=== PATIENT | female | born 1985 | race Caucasian/White ===

== ENCOUNTER 2017-06-17 10:34 | Emergency (ER) | payer OTHER ==
[2017-06-17 10:38] VITALS: BP 130/89
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
[2017-06-17] MEDS ORDERED: CYCLOBENZAPRINE HCL 10 MG TABLET PO ONE (11:47)
[2017-06-17] MEDS ORDERED: OXYCODONE-ACETAMINOPHEN 5-325 MG TABLET PO ONE (11:47)
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
== END 2017-06-17 12:11 | disposition home or self-care (01) ==
LOC: ER 10:34
DX: M54.2 Cervicalgia (principal); M54.6 Pain in thoracic spine; M25.512 Pain in left shoulder; M62.838 Other muscle spasm; V49.50XA Passenger injured in collision with unspecified motor vehicles in traffic accident, initial encounter; Z88.0 Allergy status to penicillin; Z87.892 Personal history of anaphylaxis; Z88.5 Allergy status to narcotic agent; Z88.6 Allergy status to analgesic agent
CPT/HCPCS: 72050; 99284

== ENCOUNTER 2018-07-18 08:29 | Emergency (ER) | payer OTHER ==
[2018-07-18 08:54] LABS: APPEARANCE,URINE TURBID; BILIRUBIN,URINE NEGATIVE (NEGATIVE); COLOR,URINE YELLOW; GLUCOSE, URINE NEGATIVE (NEGATIVE); KETONES,URINE NEGATIVE (NEGATIVE); LEUKOCYTE ESTERASE,URINE LARGE (NEGATIVE); NITRITE,URINE NEGATIVE (NEGATIVE); PROTEIN,URINE NEGATIVE (NEGATIVE); URINE SPECIFIC GRAVITY 1.014; UROBILINOGEN,URINE NEGATIVE mg/dL (<2.0)
[2018-07-18] MEDS ORDERED: NITROFURANTOIN MONOHYD/M-CRYST 100 MG CAPSULE PO ONE (09:46)
--- NOTE | 2018-07-18 09:48 | ER Document Report ---
ED General - General Chief Complaint: Urinary Problem Stated Complaint: BURNING WITH URINATION Time Seen by Provider: 07/18/18 09:31 TRAVEL OUTSIDE OF THE [place] IN LAST 30 DAYS: No - HPI Notes: Patient is a 32-year-old female that presents to the emergency department for chief complaint of dysuria. Patient complains of dysuria for the past 3-4 days. She states occasionally it appears to be bloody. She denies any nausea, vomiting, abdominal pain, diarrhea , fevers or chills. She does have a history of urinary tract infections in the past. She denies any concern for STD. She has not taken any medication at home for her symptoms. Past Medical History: Anxiety, depression Past Surgical History: Hip arthroscopy, tubal ligation Social History: Daily tobacco, denies drugs and alcohol Family History: Reviewed and noncontributory for presenting illness Allergies: Reviewed, see documented allergy list. REVIEW OF SYSTEMS: CONSTITUTIONAL : No fever No chills No diaphoresis No recent illness EENT: No vision changes No congestion No sore throat CARDIOVASCULAR: No chest pain No palpitations RESPIRATORY: No shortness of breath No cough No difficulty breathing GASTROINTESTINAL: No abdominal pain No nausea No vomiting No diarrhea GENITOURINARY: dysuria No hematuria No difficulty urinating MUSCULOSKELETAL: No back pain No leg pain No arm pain SKIN: No rashes No lesions LYMPHATIC: No swollen, enlarged glands. NEUROLOGICAL: No lightheadedness No headache No weakness No paresthesias PSYCHIATRIC: No anxiety No depression PHYSICAL EXAMINATION: Vital signs reviewed, nursing noted reviewed. GENERAL: Well-appearing, well-nourished and in no acute distress. HEAD: Atraumatic, normocephalic. EYES: Eyes appear normal, extraocular movements intact, sclera anicteric, conjunctiva are normal. ENT: nares patent, oropharynx clear without exudates. Moist mucous membranes. NECK: Normal range of motion, supple without lymphadenopathy LUNGS: Breath sounds clear to auscultation bilaterally and equal. No wheezes rales or rhonchi. HEART: Regular rate and rhythm without murmurs ABDOMEN: Soft, nontender, normoactive bowel sounds. No rebound, guarding, or rigidity. No masses appreciated. EXTREMITIES: Nontender, good range of motion, no pitting or edema. NEUROLOGICAL: No focal neurological deficits. Moves all extremities spontaneously Motor and sensory grossly intact on exam. PSYCH: Normal mood, normal affect. SKIN: Warm, Dry, normal turgor, no rashes or lesions noted on exposed skin - Related Data Allergies/Adverse Reactions: ibuprofen [From Motrin] Allergy (Intermediate, Verified 07/18/18 08:33) Hives Penicillins Allergy (Verified 07/18/18 08:33) tramadol [Tramadol] Allergy (Verified 07/18/18 08:33) Past Medical History - Social History Smoking Status: Current Every Day Smoker Frequency of alcohol use: None Drug Abuse: None Family History: Arthritis, CAD, CVA, DM, Hyperlipidemia, Hypertension, Malignancy, Other Patient has suicidal ideation: No Patient has homicidal ideation: No Pulmonary Medical History: Reports: Hx Bronchitis Denies: Hx Asthma Renal/ Medical History: Reports: Hx Ovarian Cysts. Denies: Hx Peritoneal Dialysis Musculoskeletal Medical History: Denies Hx Arthritis, Reports Hx Musculoskeletal Deformity - chronic hip pain, rotated, Reports Hx Musculoskeletal Trauma Psychiatric Medical History: Reports: Hx Anxiety, Hx Depression Traumatic Medical History: Reports: Hx Fractures - hip Past Surgical History: Reports: Hx Gynecologic Surgery - ovarian cyst removal, Hx Oral Surgery, Hx Orthopedic Surgery - hip arthroscopy, Hx Tubal Ligation - Immunizations Immunizations up to date: Yes Hx Diphtheria, Pertussis, Tetanus Vaccination: Yes - received in the office Physical Exam - Vital signs Vitals: Temp Pulse Resp BP Pulse Ox 97.5 F 84 14 108/66 100 07/18/18 08:43 07/18/18 08:43 07/18/18 08:43 07/18/18 08:43 07/18/18 08:43 Course - Re-evaluation Re-evalutation: 07/18/18 09:47 Vitals reviewed. Nursing notes reviewed. Patient hemodynamically stable. She will be started on Macrobid for urinary tract infection. She was referred to family medicine for follow-up. Discharged in stable condition. - Vital Signs Vital signs: Temp Pulse Resp BP Pulse Ox 97.5 F 84 14 108/66 100 07/18/18 08:43 07/18/18 08:43 07/18/18 08:43 07/18/18 08:43 07/18/18 08:43 - Laboratory Laboratory results interpreted by me: 07/18/18 08:39 Urine Blood SMALL H Ur Leukocyte Esterase LARGE H Discharge - Discharge Clinical Impression: UTI (urinary tract infection) Qualifiers: Urinary tract infection type: site unspecified Hematuria presence: with hematuria Qualified Code(s): N39.0 - Urinary tract infection, site not specified ; R31.9 - Hematuria, unspecified; R31.9 - Hematuria, unspecified Condition: Stable Disposition: HOME, SELF-CARE Instructions: Urinary Tract Infection ([facility]), Nitrofurantoin ([facility]), Family Physicians / Practices Additional Instructions: Please return to the emergency department if you have any worsening, or concern of your symptoms. Please return to the emergency department if you develop chest pain, difficulty breathing, severe abdominal pain, or ongoing vomiting. Please follow-up with your primary care physician in 2-3 days and any other recommended physicians. If prescribed, take all medications as directed. If you have any questions or concerns do not hesitate to return the emergency department for evaluation. [] Prescriptions: Nitrofurantoin Monohyd/M-Cryst [Macrobid 100 mg Capsule] 1 tab PO BID #10 capsule
[2018-07-18 10:05] VITALS: BP 112/87
== END 2018-07-18 10:05 | disposition home or self-care (01) ==
LOC: ER 08:29
DX: N39.0 Urinary tract infection, site not specified (principal); R31.9 Hematuria, unspecified; F17.200 Nicotine dependence, unspecified, uncomplicated; Z98.51 Tubal ligation status; Z88.0 Allergy status to penicillin; Z88.6 Allergy status to analgesic agent
CPT/HCPCS: 99283; 81025; 81001; J8499

== ENCOUNTER 2018-09-23 09:42 | Emergency (ER) | payer OTHER ==
[2018-09-23] MEDS ORDERED: OXYCODONE-ACETAMINOPHEN 5-325 MG TABLET PO ONE (10:06)
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
[2018-09-23 11:20] LABS: APPEARANCE,URINE SLIGHTLY-CLOUDY; BILIRUBIN,URINE NEGATIVE (NEGATIVE); COLOR,URINE YELLOW; GLUCOSE, URINE NEGATIVE (NEGATIVE); KETONES,URINE NEGATIVE (NEGATIVE); LEUKOCYTE ESTERASE,URINE NEGATIVE (NEGATIVE); NITRITE,URINE NEGATIVE (NEGATIVE); PROTEIN,URINE NEGATIVE (NEGATIVE); URINE SPECIFIC GRAVITY 1.013; UROBILINOGEN,URINE NEGATIVE mg/dL (<2.0)
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
[2018-09-23] MEDS ORDERED: HYDROCODONE/ACETAMINOPHEN 5-325 MG (6 TAB/ER DISP) PO PRN (12:25)
[2018-09-23 13:32] VITALS: BP 135/91
== END 2018-09-23 13:31 | disposition home or self-care (01) ==
LOC: ER 09:42
DX: S06.9X9A Unspecified intracranial injury with loss of consciousness of unspecified duration, initial encounter (principal); S52.042A Displaced fracture of coronoid process of left ulna, initial encounter for closed fracture; S16.1XXA Strain of muscle, fascia and tendon at neck level, initial encounter; M25.551 Pain in right hip; M54.5 Low back pain; V48.5XXA Car driver injured in noncollision transport accident in traffic accident, initial encounter; Y93.89 Activity, other specified; J32.0 Chronic maxillary sinusitis; F17.210 Nicotine dependence, cigarettes, uncomplicated; Z71.6 Tobacco abuse counseling; Z88.6 Allergy status to analgesic agent; Z88.8 Allergy status to other drugs, medicaments and biological substances; Z88.0 Allergy status to penicillin; Z88.5 Allergy status to narcotic agent
CPT/HCPCS: 70450; 71111; 72110; 72125; 81001; 81025; 99284; 99406

== ENCOUNTER 2018-10-05 14:26 | Emergency (ER) | payer OTHER ==
[2018-10-05] MEDS ORDERED: OXYCODONE-ACETAMINOPHEN 5-325 MG TABLET PO ONE (15:48)
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
[2018-10-05 16:06] VITALS: BP 120/80
== END 2018-10-05 16:04 | disposition home or self-care (01) ==
LOC: ER 14:26
DX: S52.042A Displaced fracture of coronoid process of left ulna, initial encounter for closed fracture (principal); M25.522 Pain in left elbow; X58.XXXA Exposure to other specified factors, initial encounter
CPT/HCPCS: 99283

== ENCOUNTER 2018-11-21 12:10 | Emergency (ER) | payer OTHER ==
[2018-11-21 12:22] VITALS: BP 126/83
[2018-11-21] MEDS ORDERED: CEFTRIAXONE INJ 1000 MG VIAL IM ONE (12:40)
[2018-11-21] MEDS ORDERED: LIDOCAINE 1% INJ-PF (10 MG/ML) 30 ML SDV INJ ONE (12:40)
[2018-11-21] MEDS ORDERED: HYDROCODONE/ACETAMINOPHEN 5-325 MG TABLET PO ONE (12:40)
--- NOTE | 2018-11-21 12:45 | ER Document Report ---
HPI - HPI Patient complains to provider of: Skin infection Time Seen by Provider: 11/21/18 12:25 Onset: Yesterday Onset/Duration: Gradual Quality of pain: Achy Pain Level: 5 Context: Patient complains of a possible insect bite to her right leg. Patient complains of redness and swelling that started yesterday. Patient denies any fever or history of MRSA. Patient states that area started to spontaneously drain at home purulent drainage. Associated Symptoms: Other - Drainage from skin to posterior aspect of right leg. denies: Fever Exacerbated by: Movement Relieved by: Denies Similar symptoms previously: No Recently seen / treated by doctor: No - ROS ROS below otherwise negative: Yes Systems Reviewed and Negative: Yes All other systems reviewed and negative - CONSTITUTIONAL Constitutional: DENIES: Fever, Chills - REPRODUCTIVE Reproductive: DENIES: : - MUSCULOSKELETAL Musculoskeletal: REPORTS: Extremity pain - DERM Skin Color: Erythema Past Medical History - General Information source: Patient - Social History Smoking Status: Current Every Day Smoker Smoking Education Provided: Yes Frequency of alcohol use: None Drug Abuse: None 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 Denies: Hx Peritoneal Dialysis Musculoskeletal Medical History: Denies Hx Arthritis, Reports Hx Musculoskeletal Deformity - chronic hip pain, rotated, Reports Hx Musculoskeletal Trauma Psychiatric Medical History: Reports: Hx Anxiety, Hx Depression Traumatic Medical History: Reports: Hx Fractures - hip Past Surgical History: Reports: Hx Gynecologic Surgery - ovarian cyst removal, Hx Oral Surgery, Hx Orthopedic Surgery - hip arthroscopy, Hx Tubal Ligation - Immunizations Immunizations up to date: Yes Hx Diphtheria, Pertussis, Tetanus Vaccination: Yes - received in the office Vertical Provider Document - CONSTITUTIONAL Agree With Documented VS: Yes Exam Limitations: No Limitations General Appearance: WD/WN, No Apparent Distress - INFECTION CONTROL TRAVEL OUTSIDE OF THE [place] IN LAST 30 DAYS: No - HEENT HEENT: Atraumatic, Normocephalic - NECK Neck: Normal Inspection, Supple - RESPIRATORY Respiratory: Breath Sounds Normal, No Respiratory Distress - CARDIOVASCULAR Cardiovascular: Regular Rate, Regular Rhythm Pulses: Normal: Dorsalis pedis - MUSCULOSKELETAL/EXTREMETIES Musculoskeletal/Extremeties: FRANKIE MEHTA Notes: Patient with full range of motion to right knee joint without guarding or significant tenderness - NEURO Level of Consciousness: Awake, Alert, Appropriate Motor/Sensory: No Motor Deficit - DERM Integumentary: Warm, Dry Adult Front & Back Diagram: 1 - Erythema surrounding central tender indurated skin lesion, concerning for developing abscess Course - Re-evaluation Re-evalutation: 11/21/18 12:42 Patient with developing abscess to the right posterior distal thigh, skin o verlying area erythematous concerning for cellulitis. No concern for septic arthritis at this time. - Vital Signs Vital signs: Temp Pulse Resp BP Pulse Ox 99.2 F 105 H 16 126/83 H 99 11/21/18 12:20 11/21/18 12:20 11/21/18 12:20 11/21/18 12:20 11/21/18 12:20 Procedures - Incision and Drainage Right Leg Type: Simple Incision Method: Incision made with needle Amount/type of drainage: Serous drainage only from wound Notes: 11/21/18 12:43 Attempted to de roof a papular lesion to right posterior leg, no purulent drainage removed Discharge - Discharge Clinical Impression: Abscess Cellulitis Qualifiers: Site of cellulitis: extremity Site of cellulitis of extremity: lower extremity Laterality: right Qualified Code(s): L03.115 - Cellulitis of right lower limb Condition: Stable Disposition: HOME, SELF-CARE Instructions: Abscess ([facility]), Cephalexin ([facility]), Post Incision and Drainage, Rocephin ([facility]), Trimethoprim-Sulfa ([facility]) Additional Instructions: Return immediately for any new or worsening symptoms Followup with your primary care provider, call tomorrow to make a followup appointment Apply warm compresses frequently to right leg Prescriptions: Cephalexin Monohydrate [Keflex 500 mg Capsule] 500 mg PO Q6H 7 Days capsule Sulfamethoxazole/Trimethoprim [Bactrim Ds Tablet] 1 each PO BID #20 tablet Forms: Smoking Cessation Education, Return to Work Referrals: [facility] [Provider Group] - Follow up as needed
== END 2018-11-21 13:30 | disposition home or self-care (01) ==
LOC: ER 12:10
PROC: 0H9KXZZ Drainage of Right Lower Leg Skin, External Approach (ICD-10-PCS; principal; 2018-11-21)
DX: L02.415 Cutaneous abscess of right lower limb (principal); L03.115 Cellulitis of right lower limb; W57.XXXA Bitten or stung by nonvenomous insect and other nonvenomous arthropods, initial encounter; F17.200 Nicotine dependence, unspecified, uncomplicated
CPT/HCPCS: 99282; 96372; 87070; 87205; 10060; J3490; J0696

== ENCOUNTER 2019-01-19 10:19 | Emergency (ER) | payer SELFPAY ==
[2019-01-19] MEDS ORDERED: ASPIRIN 81 MG TABLET, CHEWABLE PO ONE (10:51)
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
--- NOTE | 2019-01-19 11:14 | RADIOLOGY REPORT (SQ) ---
EXAM DESCRIPTION: CHEST SINGLE VIEW COMPLETED DATE/TIME: 01/19/2019 11:06 am REASON FOR STUDY: chest pain COMPARISON: 01/01/2016 EXAM PARAMETERS: NUMBER OF VIEWS: One view. TECHNIQUE: Single frontal radiographic view of the chest acquired. RADIATION DOSE: NA LIMITATIONS: None. FINDINGS: LUNGS AND PLEURA: No opacities, masses or pneumothorax. No pleural effusion. MEDIASTINUM AND HILAR STRUCTURES: No masses. Contour normal. HEART AND VASCULAR STRUCTURES: Heart normal in size. Normal vasculature. BONES: No acute findings. HARDWARE: None in the chest. OTHER: No other significant finding. IMPRESSION: NO ACUTE RADIOGRAPHIC FINDING IN THE CHEST. TECHNICAL DOCUMENTATION: JOB ID: [id number] [employer]- All Rights Reserved Reading location - IP/workstation name: [email or web address]
[2019-01-19 11:49] LABS: ABSOLUTE LYMPHOCYTES (AUTO) 1.1 10^3/uL (0.5-4.7); ABSOLUTE MONOCYTES (AUTO) 0.4 10^3/uL (0.1-1.4); BASOPHILS % (AUTO) 0.3 % (0-2); EOSINOPHILS % (AUTO) 0.4 % (0-6); HEMATOCRIT 40.7 % (36.0-47.0); LYMPHOCYTES % (AUTO) 16.8 % (13-45); MEAN CORPUSCULAR HEMOGLOBIN 30.9 pg (27.0-33.4); MEAN CORPUSCULAR HGB CONC 34.4 g/dL (32.0-36.0); MEAN CORPUSCULAR VOLUME 90 fl (80-97); MONOCYTES % (AUTO) 6.3 % (3-13); PLATELET COUNT 221 10^3/uL (150-450); RED BLOOD COUNT 4.53 10^6/uL (3.72-5.28); RED CELL DISTRIBUTION WIDTH 13.2 % (11.5-14.0); SEGMENTED NEUTROPHILS % (AUTO) 76.2 % (42-78); TOTAL CELLS COUNTED % (AUTO) 100 %; WHITE BLOOD COUNT 6.6 10^3/uL (4.0-10.5)
[2019-01-19 12:12] LABS: ALANINE AMINOTRANSFERASE 21 U/L (9-52); ALBUMIN 4.5 g/dL (3.5-5.0); ALKALINE PHOSPHATASE 69 U/L (38-126); ANION GAP 10 (5-19); ASPARTATE AMINO TRANSFERASE 19 U/L (14-36); BILIRUBIN,DIRECT 0.3 mg/dL (0.0-0.4); BILIRUBIN,TOTAL 0.4 mg/dL (0.2-1.3); BLOOD UREA NITROGEN 9 mg/dL (7-20); CARBON DIOXIDE 29 mmol/L (22-30); CHLORIDE 101 mmol/L (98-107); CREATINE KINASE 65 U/L (30-135); GLUCOSE 115 mg/dL (75-110); POTASSIUM 4.5 mmol/L (3.6-5.0); SODIUM 140.4 mmol/L (137-145)
[2019-01-19 12:22] LABS: CREATINE KINASE MB 0.41 ng/mL (<4.55)
[2019-01-19 12:34] LABS: TROPONIN I < 0.012 ng/mL
--- NOTE | 2019-01-19 12:51 | EKG REPORT ---
SEVERITY:- BORDERLINE ECG - SINUS RHYTHM SHORT MI INTERVAL, ACCELERATED AV CONDUCTION MINIMAL ST DEPRESSION, DIFFUSE LEADS : Confirmed by: Derek Rivera MD 19-Jan-2019 12:50:40
[2019-01-19] MEDS ORDERED: OXYCODONE-ACETAMINOPHEN 5-325 MG TABLET PO ONE (13:53)
[2019-01-19] MEDS ORDERED: LIDOCAINE 5% (700 MG) TRANSDERMAL ADH..PATCH TP ONE (13:54)
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
[2019-01-19 15:04] VITALS: BP 99/66
== END 2019-01-19 15:07 | disposition home or self-care (01) ==
LOC: ER 10:19
DX: J40 Bronchitis, not specified as acute or chronic (principal); R07.89 Other chest pain; M54.6 Pain in thoracic spine; R11.2 Nausea with vomiting, unspecified; F17.200 Nicotine dependence, unspecified, uncomplicated; Z88.6 Allergy status to analgesic agent; Z88.0 Allergy status to penicillin; Z98.51 Tubal ligation status
CPT/HCPCS: 36415; 71045; 80053; 82550; 82553; 84484; 85025; 93005; 93010; 99284

== ENCOUNTER 2019-01-31 10:16 | Emergency (ER) | payer OTHER ==
[2019-01-31] MEDS ORDERED: ACETAMINOPHEN 325 MG TABLET PO ONE (11:06)
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
--- NOTE | 2019-01-31 11:51 | RADIOLOGY REPORT (SQ) ---
EXAM DESCRIPTION: ELBOW LEFT OVER 2 VIEWS COMPLETED DATE/TIME: 01/31/2019 11:26 am REASON FOR STUDY: trauma COMPARISON: None. NUMBER OF VIEWS: Four views left elbow. LIMITATIONS: None. FINDINGS: There is no acute or significant bone, joint or soft tissue abnormality. OTHER: No other significant finding. IMPRESSION: NORMAL STUDY. TECHNICAL DOCUMENTATION: JOB ID: [id number] Reading location - IP/workstation name: [email or web address]
[2019-01-31] MEDS ORDERED: HYDROCODONE/ACETAMINOPHEN 5-325 MG TABLET PO ONE (12:20)
[2019-01-31 12:44] VITALS: BP 120/66
== END 2019-01-31 12:44 | disposition home or self-care (01) ==
LOC: ER 10:16
DX: M25.522 Pain in left elbow (principal); V49.9XXA Car occupant (driver) (passenger) injured in unspecified traffic accident, initial encounter; F17.200 Nicotine dependence, unspecified, uncomplicated
CPT/HCPCS: 99283

== ENCOUNTER 2019-06-25 08:58 | Emergency (ER) | payer SELFPAY ==
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
[2019-06-25] MEDS ORDERED: MORPHINE SULFATE 10 MG/ML INJ IV ONE (09:25)
[2019-06-25] MEDS ORDERED: DEXAMETHASONE SOD PHOSPHATE INJ 4 MG/1 ML VIAL IV ONE (09:25)
[2019-06-25] MEDS ORDERED: NORMAL SALINE 1000 ML 1,000 ML IV ONE (09:26)
[2019-06-25] MEDS ORDERED: CLINDAMYCIN 600 MG/D5W RTU 600 MG/50 ML RTUPB IV ONE (09:26)
[2019-06-25 09:56] LABS: ABSOLUTE EOSINOPHILS # (AUTO) 0.1 10^3/uL (0.0-0.6); ABSOLUTE LYMPHOCYTES (AUTO) 2.4 10^3/uL (0.5-4.7); ABSOLUTE MONOCYTES (AUTO) 0.6 10^3/uL (0.1-1.4); BASOPHILS % (AUTO) 0.5 % (0-2); EOSINOPHILS % (AUTO) 1.7 % (0-6); HEMATOCRIT 39.3 % (36.0-47.0); HEMOGLOBIN 13.4 g/dL (12.0-15.5); LYMPHOCYTES % (AUTO) 39.7 % (13-45); MEAN CORPUSCULAR HEMOGLOBIN 30.6 pg (27.0-33.4); MEAN CORPUSCULAR VOLUME 90 fl (80-97); MONOCYTES % (AUTO) 9.2 % (3-13); PLATELET COUNT 184 10^3/uL (150-450); RED BLOOD COUNT 4.37 10^6/uL (3.72-5.28); RED CELL DISTRIBUTION WIDTH 12.9 % (11.5-14.0); SEGMENTED NEUTROPHILS % (AUTO) 48.9 % (42-78); TOTAL CELLS COUNTED % (AUTO) 100 %; WHITE BLOOD COUNT 6.1 10^3/uL (4.0-10.5)
[2019-06-25 10:17] LABS: ANION GAP 9 (5-19); BLOOD UREA NITROGEN 12 mg/dL (7-20); CALCIUM 9.3 mg/dL (8.4-10.2); CARBON DIOXIDE 30 mmol/L (22-30); CHLORIDE 101 mmol/L (98-107); GLUCOSE 96 mg/dL (75-110); POTASSIUM 3.3 mmol/L (3.6-5.0)
--- NOTE | 2019-06-25 11:27 | RADIOLOGY REPORT (SQ) ---
EXAM DESCRIPTION: CT SOFT TISSUE NECK WITH COMPLETED DATE/TIME: 06/25/2019 10:58 am REASON FOR STUDY: facial swelling COMPARISON: None. TECHNIQUE: Post IV contrasted scanning from skull base through lung apices with review of bone, soft tissue and lung windows. Reconstructed coronal and sagittal MPR images reviewed. All images stored on PACS. All CT scanners at this facility use dose modulation, iterative reconstruction, and/or weight based d osing when appropriate to reduce radiation dose to as low as reasonably achievable (ALARA). [facility]: Dose Right [facility]: CareDose [facility]: Dose Right [facility]: Teradose 4D [facility]: [employer] CONTRAST TYPE AND DOSE: 75 cc Isovue 370- low osmolar. RENAL FUNCTION: None required. The patient is less than 50 years old. RADIATION DOSE: CT Rad equipment meets quality standard of care and radiation dose reduction techniq ues were employed. CTDIvol: 8.2 mGy. DLP: 190 mGy-cm. . LIMITATIONS: None. FINDINGS: SKULL BASE: Intact. MAJOR SALIVARY GLANDS: No solid or cystic masses. No inflammatory changes. LYMPHADENOPATHY: No adenopathy. MUCOSAL MASSES OR ASYMMETRY: No mucosal masses or asymmetry. LARYNX/CORDS: No abnormal findings. VASCULAR STRUCTURES: The major vessels are patent. LUNG APICES: Clear. BONES: Intact. THYROID: Normal size. No masses. PARANASAL SINUSES: Small amount of fluid left maxillary sinus. OTHER: Diffuse inflammation in the subcutaneous tissues left submandibular and facial region. No abs cess or foreign body. IMPRESSION: Cellulitis. No abscess. TECHNICAL DOCUMENTATION: JOB ID: [id number] Quality ID # [id number]: Final reports with documentation of one or more dose reduction techniques (e.g., Au tomated exposure control, adjustment of the mA and/or kV according to patient size, use of iterative reconstruction technique) 2010 [employer]- All Rights Reserved Reading location - IP/workstation name: [email or web address]
[2019-06-25 12:01] VITALS: BP 115/72
== END 2019-06-25 12:05 | disposition home or self-care (01) ==
LOC: ER 08:58
DX: L03.211 Cellulitis of face (principal); K02.9 Dental caries, unspecified; K08.89 Other specified disorders of teeth and supporting structures; R22.0 Localized swelling, mass and lump, head; R68.84 Jaw pain; F17.200 Nicotine dependence, unspecified, uncomplicated
CPT/HCPCS: 99282; 36415; 85025; 80048; 70491; J1100; J2270; J7030

== ENCOUNTER 2019-11-29 12:47 | Emergency (ER) | payer SELFPAY ==
--- NOTE | 2019-11-29 13:25 | ER Document Report ---
HPI - HPI Time Seen by Provider: 11/29/19 13:22 Notes: 34-year-old female patient presenting to the emergency department chief complaint of cough, congestion and vomiting since Saturday. Patient reports she thinks she may have pneumonia. Patient reports history of pneumonia. States her fevers have been high at home. Denies any body pain. - REPRODUCTIVE Reproductive: DENIES: : Past Medical History - General Information source: Patient - Social History Smoking Status: Never Smoker Frequency of alcohol use: None Drug Abuse: None Family History: Arthritis, CAD, CVA, DM, Hyperlipidemia, Hypertension, Malignancy, Other Pulmonary Medical History: Reports: Hx Bronchitis, Hx Pneumonia Denies: Hx Asthma Renal/ Medical History: Reports: Hx Ovarian Cysts. Denies: Hx Peritoneal Dialysis Musculoskeletal Medical History: Denies Hx Arthritis, Reports Hx Musculoskeletal Deformity - chronic hip pain, rotated, Reports Hx Musculoskeletal Trauma Psychiatric Medical History: Reports: Hx Anxiety, Hx Depression Traumatic Medical History: Reports: Hx Fractures - hip Past Surgical History: Reports: Hx Gynecologic Surgery - ovarian cyst removal, Hx Oral Surgery, Hx Orthopedic Surgery - hip arthroscopy, Hx Tubal Ligation - Immunizations Immunizations up to date: Yes Hx Diphtheria, Pertussis, Tetanus Vaccination: Yes - received in the office Vertical Provider Document - CONSTITUTIONAL Notes: PHYSICAL EXAMINATION: GENERAL: Well-appearing, well-nourished and in no acute distress. HEAD: Atraumatic, normocephalic. EYES: Pupils equal round and reactive to light, extraocular movements intact, conjunctiva are normal. ENT: Nares patent, oropharynx clear without exudates. Moist mucous membranes. NECK: Normal range of motion, supple without lymphadenopathy LUNGS: Breath sounds clear to auscultation bilaterally and equal. No wheezes rales or rhonchi. HEART: Regular rate and rhythm without murmurs ABDOMEN: Soft, nontender, nondistended abdomen. No guarding, no rebound. No masses appreciated. Female : deferred Musculoskeletal: Normal range of motion, no pitting or edema. No cyanosis. NEUROLOGICAL: Cranial nerves grossly intact. Normal speech, normal gait. Rosita l sensory, motor exams PSYCH: Normal mood, normal affect. SKIN: Warm, Dry, normal turgor, no rashes or lesions noted. - INFECTION CONTROL TRAVEL OUTSIDE OF THE [place] IN LAST 30 DAYS: No Course - Re-evaluation Re-evalutation: Chest X-Ray 11/29/19 13:24 IMPRESSION: Airspace opacity at the right upper lobe, may be secondary to pneumonia. Radiographic follow-up recommended to document complete resolution exclude a different etiology. Patient appears well, nontoxic, she is tachycardic although she has a history of anxiety. She was given 1 dose of Xanax which is what she takes at home. She will be started on antibiotics for pneumonia. Strict ED return precautions were discussed, patient verbalized understanding and agreement with same. - Vital Signs Vital signs: Temp Pulse Resp BP Pulse Ox 98.9 F 117 H 16 124/78 94 11/29/19 13:02 11/29/19 13:02 11/29/19 13:02 11/29/19 13:02 11/29/19 13:02 Discharge - Discharge Clinical Impression: Pneumonia Qualifiers: Pneumonia type: due to unspecified organism Laterality: unspecified laterality Lung location: unspecified part of lung Qualified Code(s): J18.9 - Pneumonia, unspecified organism Condition: Stable Disposition: HOME, SELF-CARE Additional Instructions: You have been diagnosed with a pneumonia. It is very important that you take all of your antibiotics until they are gone even if you are feeling better. Please return to the emergency department immediately if you began having worsening shortness of breath, become confused, have worsening pain, pass out, have persistent vomiting that prevents you from being able to drink fluids for more than 12 hours, or have any other symptoms that are worrisome to you. Please follow-up with your primary care doctor in the next 1-2 days. Prescriptions: Benzonatate [Tessalon Perles 100 mg Capsule] 1 - 2 tab PO Q8HP PRN #30 capsule PRN Reason: Prednisone [Deltasone 20 mg Tablet] 3 tab PO DAILY 5 Days #15 tablet Doxycycline Hyclate [Vibramycin] 100 mg PO BID #14 capsule Forms: Return to Work
--- NOTE | 2019-11-29 13:55 | RADIOLOGY REPORT (SQ) ---
EXAM DESCRIPTION: CHEST 2 VIEWS COMPLETED DATE/TIME: 11/29/2019 1:37 pm REASON FOR STUDY: cough/fever COMPARISON: Chest x-ray 01/19/2019, 01/01/2016. EXAM PARAMETERS: NUMBER OF VIEWS: two views TECHNIQUE: Digital Frontal and Lateral radiographic views of the chest acquired. RADIATION DOSE: NA LIMITATIONS: none FINDINGS: LUNGS AND PLEURA: Airspace opacity noted at the right upper lobe. No pneumothorax or pleu ral effusion. MEDIASTINUM AND HILAR STRUCTURES: No masses or contour abnormalities. HEART AND VASCULAR STRUCTURES: Heart normal size. No evidence for failure. BONES: No acute findings. HARDWARE: None in the chest. IMPRESSION: Airspace opacity at the right upper lobe, may be secondary to pneumonia. Radiographic f ollow-up recommended to document complete resolution exclude a different etiology. TECHNICAL DOCUMENTATION: JOB ID: [id number] 2010 [employer]- All Rights Reserved Reading location - IP/workstation name: [email or web address]
[2019-11-29 14:45] VITALS: BP 146/107
[2019-11-29] MEDS ORDERED: ALPRAZOLAM 0.25 MG TABLET PO ONE (14:45)
[2019-11-29] MEDS ORDERED: ACETAMINOPHEN 325 MG TABLET PO ONE (14:46)
== END 2019-11-29 14:57 | disposition home or self-care (01) ==
LOC: ER 12:47
DX: J18.9 Pneumonia, unspecified organism (principal); R05 Cough; R11.10 Vomiting, unspecified; F41.9 Anxiety disorder, unspecified; Z79.899 Other long term (current) drug therapy; R00.0 Tachycardia, unspecified
CPT/HCPCS: 71046

== ENCOUNTER 2020-07-30 03:48 | Emergency (ER) | payer SELFPAY ==
[2020-07-30] MEDS ORDERED: NORMAL SALINE 1000 ML 1,000 ML IV ONE (04:15)
[2020-07-30] MEDS ORDERED: HYDROMORPHONE HCL INJ/PF 2 MG/ML AMPULE IV ONE (04:16)
[2020-07-30] MEDS ORDERED: ONDANSETRON HCL INJ/PF 4 MG/2 ML SDV IV ONE (04:16)
[2020-07-30] MEDS ORDERED: CLINDAMYCIN 900 MG/D5W RTU 900 MG/50 ML RTUPB IV ONE (04:17)
[2020-07-30] MEDS ORDERED: LIDOCAINE 2% INJ (20 MG/ML) 20 ML MDV INJ ONE (04:18)
--- NOTE | 2020-07-30 04:21 | ER Document Report ---
ED General - General Chief Complaint: Hand Swelling Stated Complaint: POSSIBLE BUG BITE Time Seen by Provider: 07/30/20 04:00 TRAVEL OUTSIDE OF THE [place] IN LAST 30 DAYS: No - HPI Context: This is a 34-year-old female presenting with a chief complaint of left hand pain and swelling that has been present for 5 days. Patient states that she was doing some cleaning and noticed a spider close to her hand and thinks that the swelling is due to a spider bite. Patient describes the pain as throbbing, stating that it radiates from her hand up into her shoulder. Patient rates the pain as a 4 on a scale of 0-5. Patient states movement and touching the area makes the pain worse and nothing alleviates the pain. Associated symptoms: Other - See HPI Exacerbated by: Other - See HPI Relieved by: Other - See HPI - Related Data Allergies/Adverse Reactions: ibuprofen [From Motrin] Allergy (Intermediate, Verified 07/30/20 03:59) Hives NSAIDS (Non-Steroidal Anti-Inflamma Allergy (Verified 07/30/20 03:59) Penicillins Allergy (Verified 07/30/20 03:59) tramadol [Tramadol] Allergy (Verified 07/30/20 03:59) Past Medical History - General Information source: Patient - Social History Smoking Status: Current Every Day Smoker Frequency of alcohol use: None Drug Abuse: None Family History: Reviewed & Not Pertinent, Arthritis, CAD, CVA, DM, Hyperlipidemia, Hypertension, Malignancy, Other Patient has homicidal ideation: No Pulmonary Medical History: Reports: Hx Bronchitis, Hx Pneumonia Denies: Hx Asthma Renal/ Medical History: Reports: Hx Ovarian Cysts. Denies: Hx Peritoneal Dialysis Musculoskeletal Medical History: Denies Hx Arthritis, Reports Hx Musculoskeletal Deformity - chronic hip pain, rotated, Reports Hx Musculoskeletal Trauma Psychiatric Medical History: Reports: Hx Anxiety, Hx Depression Traumatic Medical History: Reports: Hx Fractures - hip Past Surgical History: Reports: Hx Gynecologic Surgery - ovarian cyst removal, Hx Oral Surgery, Hx Orthopedic Surgery - hip arthroscopy, Hx Tubal Ligation - Immunizations Immunizations up to date: Yes Hx Diphtheria, Pertussis, Tetanus Vaccination: Yes - received in the office Review of Systems - Review of Systems Constitutional: No symptoms reported EENT: No symptoms reported Cardiovascular: No symptoms reported Respiratory: No symptoms reported Gastrointestinal: No symptoms reported Genitourinary: No symptoms reported Female Genitourinary: No symptoms reported Musculoskeletal: Other - Left hand pain and swelling Skin: Change in color Hematologic/Lymphatic: No symptoms reported Neurological/Psychological: No symptoms reported -: Yes All other systems reviewed and negative Physical Exam - Vital signs Vitals: Pulse Resp BP Pulse Ox 117 H 16 111/86 H 99 07/30/20 03:54 07/30/20 03:54 07/30/20 03:54 07/30/20 03:54 - Notes Notes: CONSTITUTIONAL [Vital signs reviewed, Patient appears uncomfortable, Alert and oriented X 3, Normal stature.] HEAD [Atraumatic, Normocephalic.] EYES [Eyes are normal to inspection, No discharge from eyes, Extraocular muscles intact, Sclera are normal, Conjunctiva are normal.] ENT No rhinorrhea, Mouth normal to inspection.] NECK [Normal ROM, No jugular venous distention, No meningeal signs] RESPIRATORY CHEST [Chest is nontender, Breath sounds normal, No respiratory distress.] CARDIOVASCULAR [RRR, No murmurs, Normal S1 S2, No rub, No gallop.] ABDOMEN [Abdomen is nontender, No pulsatile masses, No other masses, Bowel sounds normal, No distension, No peritoneal signs, No hernias.] BACK [There is no CVA Tenderness, There is no tenderness to palpation, Normal inspection.] UPPER EXTREMITY Upper extremity exam is focused on the left hand and upper extremity. Left hand is notable for a area of swelling and erythema on the dorsum of the left hand that covers almost the entire surface the back of the hand. Area is tender to palpation. Some fluctuance and induration is present. There does not appear to be any swelling or erythema in the fingers or thumb. Patient is able to move all digits. Sensation is intact. Cap refill is less than 2 seconds. LOWER EXTREMITY [Inspection normal, No cyanosis, No clubbing, No edema, No calf tenderness, 2+ femoral pulses.] NEURO [No focal motor deficits, No focal sensory deficits, Speech normal.] SKIN [Skin is warm, Skin is dry, Skin is normal color except for erythema seen on dorsum of left hand] PSYCHIATRIC [Normal affect. ] Course - Re-evaluation Re-evalutation: 07/30/20 04:57 Discussed with patient plan of care and importance of returning to ED this e vening to have wound reexamined. All questions were answered prior to discharge. Emergency signs and symptoms, reasons to return to the emergency department discussed with the patient. - Vital Signs Vital signs: Temp Pulse Resp BP Pulse Ox 98.3 F 117 H 16 111/86 H 99 07/30/20 03:59 07/30/20 03:54 07/30/20 03:54 07/30/20 03:54 07/30/20 03:54 Procedures - Incision and Drainage Left Hand Time completed: 04:51 Type: Simple Anesthetic type: 2% Lidocaine mL's of anesthetic: 5 Blade size: 11 I&D procedure: Chlorprep applied, Iodoform packing placed, Sterile dressing applied Incision Method: Incision made by scalpel Amount/type of drainage: 2 cc of purulent and bloody drainage Discharge - Discharge Clinical Impression: Abscess of left hand, Cellulitis of left hand Condition: Stable Disposition: HOME, SELF-CARE Instructions: Abscess ([facility]), Post Incision and Drainage Additional Instructions: Return to the emergency department this evening after 9 PM to have your wound rechecked. Return to the emergency department sooner if your symptoms seem to be worsening despite taking medications as prescribed. HOME CARE INSTRUCTIONS & INFORMATION: Thank you for choosing us for your medical needs. We hope you're satisfied with the care you received. After you leave, you must properly care for your problem and, at the same time, observe its progress. Any condition can change. Some illnesses can change rapidly over hours or days. If your condition worsens, return to the Emergency Department or see your physician promptly. ABOUT YOUR X-RAYS AND EKG'S: If you had an EKG or X-rays taken, they have been read by the Emergency Physician. The X-rays and EKG's will also be read by a Radiologist or Hydraulic Repairer within 24 hours. If discrepancies are noted, you will be notified by telephone. Please be certain the ED has a correct telephone number & address where you can be reached. Also, realize that some fractures or abnormalities do not show up on initial X-rays. If your symptoms continue, see your physician. ABOUT YOUR LABORATORY TEST: If you had laboratory tests, the results have been reviewed by the Emergency Physician. Some test results (for example cultures) may not be available for several days. You will be contacted if any test result shows you need additional treatment. Please be certain the ED has a correct telephone number and address where you can be reached. ABOUT YOUR MEDICATIONS: You will receive instructions on how to take your medicine on the prescription label you receive. Additional information may be provided by the Pharmacy. If you have questions afterwards, call the ED for clarification or further instructions. Some prescribed medications may cause drowsiness. Do not perform tasks such as driving a car or operating machinery without consulting your Pharmacist. If you feel you need a refill of pain medication, your condition will need re-evaluation. Please do not call for a refill of any medication. ABOUT YOUR SIGNATURE: Signature of this document acknowledges to followin. Understanding that you received emergency treatment and that you may be released before al medical problems are known or treated. Please be certain the ED has a correct phone number & address where you can be reached. 2. Acknowledgement that you will arrange for follow-up care as recommended. 3. Authorization for the Emergency Physician to provide information to your follow-up Physician in order to maximize your care. AT ANY TIME, IF YOUR SYMPTOMS CHANGE SIGNIFICANTLY OR WORSEN OR YOU DEVELOP NEW SYMPTOMS, RETURN TO THE EMERGENCY DEPARTMENT IMMEDIATELY FOR RE-EVALUATION. OUR GOAL IS TO PROVIDE EXCELLENT MEDICAL CARE! WE HOPE THAT WE HAVE MET YOUR EXPECTATIONS DURING YOUR EMERGENCY DEPARTMENT VISIT AND THAT YOU FEEL YOU HAVE RECEIVED EXCELLENT CARE! Cellulitis You have an infection of your skin and underlying soft tissues called cellulitis. This is due to bacteria, which can enter through any break in the skin, or even through an irritated hair follicle. Untreated, cellulitis will usually worsen. Antibiotics are required. Usually, warm packs or warm soaks, and elevation of the infected area are recommended. You should start getting better within 24 to 36 hours. Most infections respond quickly to the right medication. Follow-up care is important, however, to check for abscess (boil) formation, unsuspected foreign body, or resistant infection. If you develop fever, chills, or if the area of infection is becoming rapidly more swollen or painful, call the doctor at once. Prescriptions: Oxycodone HCl/Acetaminophen [Percocet 5-325 mg Tablet] 1 tab PO Q6HP PRN #15 tablet PRN Reason: pain Clindamycin HCl [Cleocin 150 mg Capsule] 450 mg PO TID 7 Days #63 capsule
[2020-07-30] MEDS ORDERED: OXYCODONE-ACETAMINOPHEN 5-325 MG TABLET PO ONE (04:53)
[2020-07-30] MEDS ORDERED: CLINDAMYCIN HCL 150 MG CAPSULE PO ONE (04:54)
[2020-07-30 05:32] VITALS: BP 116/74
== END 2020-07-30 05:28 | disposition home or self-care (01) ==
LOC: ER 03:48
DX: L02.512 Cutaneous abscess of left hand (principal); L03.114 Cellulitis of left upper limb; Z88.8 Allergy status to other drugs, medicaments and biological substances; Z88.0 Allergy status to penicillin; Z88.6 Allergy status to analgesic agent; F17.200 Nicotine dependence, unspecified, uncomplicated
CPT/HCPCS: 82962; 87070; 87075; 87205; 99284